=== PATIENT | female | born 1950 | race Caucasian/White ===

== ENCOUNTER → 2017-02-16 | Day surgery (SDC) | payer MEDICARE ==
[~2017-02-16] VITALS: Ht 162.6 cm; Wt 60.8 kg
[~2017-02-16] MED LIST: 0.9% Sodium Chloride 1,000 ML IV PRN; Sodium Chloride LOK Flush 10 mL Syringe IV PRN; fentaNYL-PF 50 mCg/mL 2 mL Inj IVPUSH PRN
[2017-02-16 13:31] VITALS: BP 175/97; PULSE 81; RESP 14; O2SAT 99
[2017-02-16 14:12] VITALS: BP 162/81; PULSE 80; RESP 16; O2SAT 95
[2017-02-16 14:22] VITALS: BP 155/77; PULSE 76; RESP 16; O2SAT 96
[2017-02-16 14:32] VITALS: BP 161/87; PULSE 80; RESP 16; O2SAT 99
--- NOTE | 2017-02-16 16:56 | ENDO ---
[address] [address] ENDOSCOPY PROCEDURE PATIENT: SHERIN LE : 1950 MR#: [id number] ADMIT: 02/16/2017 JOB ID: [id number] PROCEDURE: Colonoscopy. INDICATION: Patient with a history of colon polyps. The patient's ASA classification is II. Mallampati score is II. MEDICATIONS: Versed 4 mg, fentanyl 100 mcg. INSTRUMENT USED: PCF-H180AL. PREP QUALITY: Fair. PROCEDURE DETAILS: After informed consent was obtained, the patient was brought into the GI suite, where she was placed on oxygen via nasal cannula and monitored with continuous pulse oximeter, telemetry, and blood pressure monitoring. A time-out was performed. Then, she was placed in a left lateral decubitus position and medications were administered for sedation. Digital rectal exam was performed which was unremarkable. The colonoscope was then inserted into the rectum and advanced under direct visualization to the cecum, which was identified by the presence of the ileocecal valve and appendiceal orifice. Once the cecum was reached, colonoscope was withdrawn back into the rectum as the mucosa and lumen were examined. In the rectum, retroflexion was performed. Following retroflexion, remaining air in the rectum was suctioned, and procedure was completed. FINDINGS: 1. In the transverse colon, there were two polyps measuring approximately 5 mm and 7 mm. Both polyps were removed using a hot snare. 2. In the ascending colon, there was an approximately 5 mm sessile polyp that was removed with a hot snare. 3. In the descending colon, there was a 5 mm sessile polyp that was removed with a hot snare. 4. Scattered diverticula were seen throughout the left side of the colon. 5. Retroflexed views in the rectum revealed moderate-sized internal hemorrhoids. IMPRESSION: 1. Ascending colon polyp. 2. Two transverse colon polyps. 3. A descending colon polyp. 4. Left-sided diverticulosis. 5. Moderate-sized internal hemorrhoids. RECOMMENDATIONS: 1. Fiber-rich diet. 2. Avoid NSAIDs and anticoagulants for 72 hours. 3. Repeat colonoscopy in three years. COMPLICATIONS: None. ESTIMATED BLOOD LOSS: Zero.
--- NOTE | 2017-02-21 08:52 | PATH ---
SURGICAL PATHOLOGY Attending Physician:Junior Barba CASE STATUS: Signed Out PATIENT NAME: SHERIN LE PID: [id number] : 1950 DATE COLLECTED:02/16/2017 00:00 SPECIMEN: 1: Colon, Polyp 2: Colon, Polyp 3: Colon, Polyp CLINICAL HISTORY: PATIENT HISTORY OF POLYPS 1). TRANSVERSE COLON POLYPS X 2 2). ASCENDING COLON POLYP X 1 3). DESCENDING COLON POLYP X 1 FINAL DIAGNOSIS: 1. Transverse Colon, Polyps x2, Biopsies: Portions of tubular adenoma x3; negative for high-grade dysplasia. Superficial portion of colorectal mucosa x1 with no diagnostic abnormality. 2. Ascending Colon, Polyp, Biopsy: Portions of tubular adenoma x2; negative for high-grade dysplasia. 3. Descending Colon, Polyp, Biopsy: Portions of tubular adenoma x3. Negative for high-grade dysplasia. ICD10: K63.5 GROSS DESCRIPTION: The specimen is received in three formalin filled containers labeled with the patient's name. 1). The specimen is labeled "transverse colon polyps" and consists of 4 portions of tissue which aggregate to 0.6 x 0.5 x 0.5 CM. The specimen is entirely submitted in cassette 1A. 2). The specimen is labeled "ascending home polyp" and consists of 2 extremely tiny portions of tissue which aggregate to less than 0.1 CM. The specimen is entirely submitted in cassette 2A. 3). The specimen is labeled "descending colon polyp" and consists of 3 portions of tissue which aggregate to 0.2 x 0.2 x 0.2 CM. The specimen is entirely submitted in cassette 3A. 02/19/2017DC ICD-9 CODES: CPT CODES: 1: 11641 2: 52137 3: [address] MD [facility] [address], [place] [address] Technical component performed at [facility] [address], [place], [address]
== END | disposition home or self-care (01) ==
LOC: END 00:44
PROVIDERS: ATTEND Internal Medicine Gastroenterology
DX: Z12.11 Encounter for screening for malignant neoplasm of colon (principal); D12.2 Benign neoplasm of ascending colon; D12.3 Benign neoplasm of transverse colon; D12.4 Benign neoplasm of descending colon; K57.30 Diverticulosis of large intestine without perforation or abscess without bleeding; K64.8 Other hemorrhoids; Z86.010 Personal history of colon polyps; Z87.891 Personal history of nicotine dependence
CPT/HCPCS: 45385; 99153; G0500; J2250; J3010; J7030